=== PATIENT | male | born 1995 | race Caucasian/White ===

== ENCOUNTER 2017-02-17 18:32 | Emergency (ER) | payer BC ==
--- NOTE | 2017-02-17 18:57 | UC ---
Skin Complaint HPI - HPI Summary HPI Summary: 21 YEAR OLD PRESENTS WITH COMPLAINS OF RASH ON HIS LEFT BUTTOCK. - History of Current Complaint Time Seen by Provider: 02/17/17 18:57 Stated Complaint: RASH BUTTOCK Hx Obtained From: Patient Onset/Duration: Sudden Onset Skin Exposure Onset/Duration: Hours Ago Timing: Constant Onset Severity: Moderate Current Severity: Moderate Pain Scale Used: 0-10 Numeric - 5 Location: Other - RASH LEFT BUTTOCK Aggravating: Nothing Alleviating: Nothing Associated Signs & Symptoms: Positive: Negative - Allergy/Home Medications Allergies/Adverse Reactions: Allergies Allergy/AdvReac Type Severity Reaction Status Date / Time No Known Allergies Allergy Verified 02/17/17 19:01 Review of Systems Constitutional: Negative Skin: Rash - LEFT BUTTOCK RASH Eyes: Negative ENT: Negative Respiratory: Negative Cardiovascular: Negative Gastrointestinal: Negative Genitourinary: Negative Motor: Negative Neurovascular: Negative Musculoskeletal: Negative Neurological: Negative Psychological: Negative All Other Systems Reviewed And Are Negative: Yes PMH/Surg Hx/FS Hx/Imm Hx Previously Healthy: Yes - Surgical History Surgical History: Yes Surgery Procedure, Year, and Place: tonsils - Social History Alcohol Use: Weekly Substance Use Type: None, Marijuana Substance Use Comment - Amount & Last Used: occ. usage Smoking Status (MU): Heavy Every Day Tobacco Smoker Type: Cigarettes, Cigars Amount Used/How Often: 1 ppd Length of Time of Smoking/Using Tobacco: age 17 Have You Smoked in the Last Year: Yes Physical Exam Triage Information Reviewed: Yes Vital Signs Reviewed: Yes Eye Exam: Normal ENT Exam: Normal Dental Exam: Normal Neck exam: Normal Neck: Positive: 1 Respiratory Exam: Normal Cardiovascular Exam: Normal Abdominal Exam: Normal Musculoskeletal Exam: Normal Neurological Exam: Normal Psychological Exam: Normal Skin: Positive: rashes - LEFT BUTTOCK RASH Course/Dx - Diagnoses Provider Diagnoses: LEFT BUTTOCK RASH Discharge - Discharge Plan Condition: Stable Disposition: HOME Prescriptions: Cephalexin CAP* [Keflex CAP*] 500 mg PO TID #30 cap Triamcinolone 0.1% CREAM(NF) [Kenalog Cream 0.1%(NF)] 1 applic TOPICAL TID PRN # 90 gm PRN Reason: Itching Patient Education Materials: Acute Rash (ED) Referrals: Coy Moore MD [Primary Care Provider] - If Needed
[2017-02-17 19:01] VITALS: BP 136/72
== END 2017-02-17 19:33 | disposition home or self-care (01) ==
LOC: UCCORT 18:32
DX: R21 Rash and other nonspecific skin eruption (principal); F12.90 Cannabis use, unspecified, uncomplicated; F17.210 Nicotine dependence, cigarettes, uncomplicated
CPT/HCPCS: 99212; G0463